=== PATIENT | male | born 1950 | race Caucasian/White ===

== ENCOUNTER 2022-05-22 20:32 | Outpatient (CLI) | payer BC, SELFPAY | END 2022-05-22 20:33 | disposition home or self-care (01) | LOC: SLEEP 20:33 | PROVIDERS: PCP Surgery; Visit Provider Internal Medicine | DX: G47.61 Periodic limb movement disorder (principal) | CPT/HCPCS: 95810 ==

== ENCOUNTER 2023-09-08 08:39 | Emergency (ER) | payer BC, SELFPAY ==
[2023-09-08 09:02] VITALS: BP 158/81; PULSE 51; RESP 18; TEMP 36.1; O2SAT 97; BMI 25.8
[2023-09-08 09:18] LABS: Appearance Urine Clear (Clear); Bilirubin Urine Negative (Negative); Blood Urine 3+ (Negative); Color Urine Yellow (Yellow); Glucose Urine Negative (Negative); Ketones Urine Negative (Negative); Leukocyte Esterase Urine Negative (Negative); Nitrite Urine Negative (Negative); Protein Urine 1+ (Negative); Specific Gravity Urine >= 1.030 (1.000-1.030); Urobilinogen Urine 0.2 (0.2-1.0); pH Urine 5.5 (5.0-8.5)
[2023-09-08 09:28] LABS: Mucus Urine Few; RBC Urine 50-100 (0-2)
--- NOTE | 2023-09-08 09:45 | ED_ITS ---
HPI - General Adult General Date Seen: 09/08/23 Chief complaint: Flank Pain Stated complaint: RT flank pain Time Seen by Provider: 09/08/23 09:43 History of Present Illness HPI narrative: This is a 23-year-old gentleman with a history of osteoarthritis, lumbar deg enerative disc disease, hyperlipidemia, colon polyps, kidney stones. He has been experiencing of right-sided low back and flank pain for the past couple of days. It has been coming and going. No clear trigger. Along with this he did have some pain in his right groin but not in his testicle yesterday. Initially thought maybe his right groin pain was due to arthritis (he has a known history of arthritis in his left knee and is due to have replaced next month and thought that he might have been favoring his left knee and straining his right hip). Pain has been manageable until this morning when he got more severe. He is not having fairly severe pain in his right flank. He did not radiate to the right upper quadrant but a little bit to the right lower quadrant. He is nauseous but not vomiting. Urine has been darker color than normal but no definite blood. No dysuria. No frequency. Bowel movements normal. No fever. No known injury Primary care's to the [facility] clinic. Per records in the [facility] care link baseline creatinine is 0.88-0.92. CT abd pelvis 10/2018 FINDINGS: Imaged lung bases are clear. Subendocardial fat deposition of the left ventricle may reflect sequelae of remote myocardial infarction. Small hypoattenuating hepatic lesions are incompletely characterized but may represent cysts. Gallbladder, spleen, pancreas and adrenal glands are unremarkable. ? Calculus in the right renal pelvis is new from prior examination measuring 1.3 x 0 0.8 cm (series 2 image 62), and average of 1,240 Hounsfield units. No significant hydronephrosis. Left kidney is unremarkable. Bladder is partially nondistended, otherwise unremarkable. Prostate is enlarged. ? Diverticulosis. No evidence of bowel obstruction. Appendix is normal. Abdominal aorta is normal in caliber. No lymphadenopathy. No free fluid or free air. Degenerative changes most pronounced at L4-L5. ? IMPRESSION: Calculus in the right renal pelvis measuring up to 1.3 cm in diameter. No significant hydronephrosis. Related Data Previous Rx's ?Medication ?Instructions ?Recorded hydrocodone 5 mg-acetaminophen 325 1 tab PO Q4-6H PRN pain #20 tabs 09/08/23 mg tablet ondansetron 4 mg disintegrating 4 mg PO Q8H PRN nausea and 09/08/23 tablet vomiting #10 tabs tamsulosin 0.4 mg capsule (Flomax) 0.4 mg PO DAILY #10 caps 09/08/23 Allergies Allergy/AdvReac Type Severity Reaction Status Date / Time No Known Drug Allergies Allergy Verified 09/08/23 09:06 [facility] Medical History (Updated 09/08/23 @ 12:37 by Pelon Beckman MD) Kidney stones ?N20.0 - Calculus of kidney (ICD-10) Elevated cholesterol ?E78.00 - Pure hypercholesterolemia, unspecified (ICD-10) Asthma ?J45.909 - Unspecified asthma, uncomplicated (ICD-10) Surgical History (Updated 09/02/23 @ 09:35 by Judi Laguna ~ [facility]) H/O knee surgery (1973) ?Z98.890 - Other specified postprocedural states (ICD-10) Family History (Updated 09/02/23 @ 09:36 by Judi Laguna ~ [facility], [facility]) Mother Diabetes Colon cancer Brother Testicular cancer Social History (Updated 09/02/23 @ 09:36 by Judi Laguna ~ [facility], [facility]) Smoking Status: Never smoker Do you use any of these nicotine containing products: None Second hand tobacco smoke exposure: No How often do you have a drink containing alcohol: never AUDIT-C Alcohol total score: 0 Non-prescribed substance use: denies use Exam Narrative: Exam Narrative: Constitutional: Appears well-developed and well-nourished. Alert. Uncomfortable appearing and off has a hard time sitting still. Rubbing his right flank. Overall he is Conversant. HENT: Head: Atraumatic. Nose: Nose normal. Mouth/Throat: Oral mucosa is clear and moist. no trismus. Pharynx normal. Eyes: Conjunctivae normal. EOM normal. Pupils equal, round, and reactive to light. No scleral icterus. Neck: Normal range of motion. Neck supple. No tracheal deviation present. Cardiovascular: Normal rate, regular rhythm. No gallop. No friction rub. No murmur heard Pulmonary/Chest: Effort normal. No stridor. No respiratory distress. No wheezes. No rales. No rhonchi . No tenderness. Abdominal: Soft. Bowel sounds normal. No distension. No mass. No right upper quadrant or right lower quadrant tenderness. No rebound. No guarding. He has pain in the right flank but is not tender to percussion. Musculoskeletal: RUE: Normal range of motion. No tenderness. No deformity LUE: Normal range of motion. No tenderness. No deformity RLE: Normal range of motion. No edema. No tenderness. No deformity LLE: Normal range of motion. No edema. No tenderness. No deformity Neurological: Alert and oriented to person, place, and time. Normal strength. CN II-VII intact. No sensory deficit. GCS eye subscore is 4. GCS verbal subscore is 5. GCS motor subscore is 6. Normal coordination Skin: Skin is warm and dry. No rash noted. No pallor. Normal capillary refill. Psychiatric: Normal mood. Normal affect, allowing for discomfort. Const: Vital Signs, click to edit/add: Vital Signs - 24 hr 09/08/23 09:02 09/08/23 11:00 Temperature 96.9 F L Pulse Rate [Pulse Oximeter] 51 L 51 L Respiratory Rate 18 16 Blood Pressure [Ri ght Upper Arm] 158/81 H Pulse Oximetry 97 94 Oxygen Delivery Me thod Room Air Room Air Course Course ED Course: Recheck-reports that his pain is tremendously improved after meds given here in the ER. He is comfortable. No nausea. Vital Signs Vital signs: Initial Vital Signs Temperature 96.9 F L 09/08/23 09:02 Temperature Source Temporal Artery Scan 09/08/23 09:02 Pulse Rate 51 L 09/08/23 09:02 Respiratory Rate 18 09/08/23 09:02 Blood Pressure 158/81 H 09/08/23 09:02 Blood Pressure Mean 106 H 09/08/23 09:02 Blood Pressure Position Sitting 09/08/23 09:02 Pulse Oximetry 97 09/08/23 09:02 Oxygen Delivery Method Room Air 09/08/23 09:02 Vital Signs Temperature 96.9 F L 09/08/23 09:02 Pulse Rate 51 L 09/08/23 09:02 Respiratory Rate 18 09/08/23 09:02 Blood Pressure 158/81 H 09/08/23 09:02 Pulse Oximetry 97 09/08/23 09:02 Oxygen Delivery Method Room Air 09/08/23 09:02 Temperature 96.9 F L 09/08/23 09:02 Pulse Rate 51 L 09/08/23 11:00 Respiratory Rate 16 09/08/23 11:00 Blood Pressure 158/81 H 09/08/23 09:02 Pulse Oximetry 94 09/08/23 11:00 Oxygen Delivery Method Room Air 09/08/23 11:00 Medications Administered Medications: Generic Name Dose Route Start Last Admin Trade Name Freq PRN Reason Stop Dose Admin Hydromorphone HCl 0.5 mg 09/08/23 09:51 09/08/23 10:09 Hydromorphone 0.5 Mg/0.5 Ml Inj IVP 0.5 mg Q1H PRN Administration Pain Discontinued Medications Generic Name Dose Route Start Last Admin Trade Name Freq PRN Reason Stop Dose Admin Ketorolac Tromethamine 15 mg 09/08/23 09:51 09/08/23 10:09 Ketorolac 15 Mg/Ml Inj IVP 09/08/23 09:52 15 mg ONCE ONE Administration Ondansetron HCl 4 mg 09/08/23 09:51 09/08/23 10:09 Ondansetron 2 Mg/Ml Inj IVP 09/08/23 09:52 4 mg ONCE ONE Administration Medical Decision Making MDM Narrative Medical decision making narrative: This patient presents with right flank pain. Differential Diagnosis considered includes: Ureterolithiasis, UTI, pyelonephritis, AAA, colitis, diverticulitis, volvulus, appendicitis, cholecy stitis, among others. At this point, the evaluation indicates that ureterolithiasis is the cause of the patient's symptoms. There are no signs that this is an infected stone. The patient's pain is controlled in ED. The patient is hemodynamically stable in ED. I think the patient is safe for discharge. The plan is discharge to home with recheck by primary care physician or urology.They will return to the ED right away if symptoms worsen (e.g Return immediately for fevers greater than 102, increasing pain, other new symptoms develop). Ureterolithiasis precautions for home. Prescriptions for pain control, nausea control, and flomax were provided. The patient's questions were answered. Patient has tolerated Vicodin well in the past. He has had less success with Percocet. Therefore prescription for hydrocodone provided. Opiate precautions reviewed. Also prescriptions for Zofran and Flomax. He will follow-up with his urologist at [facility] within the next 1-2 weeks. Precautions for return to the ER reviewed. Lab Data Labs: Lab Results 09/08/23 09/08/23 Range/Units 10:00 Unknown Sodium 142 (135-149) mmol/L Potassium 3.7 (3.6-5.1) mmol/L Chloride 107 (96-114) mmol/L Carbon Dioxide 27 (20-32) mmol/L Anion Gap 8 (7-15) mEq/L BUN 26 (7-30) mg/dL Creatinine 1.0 (0.5-1.5) mg/dL Estimated Creat Clear 66.92 Estimated GFR 79 ml/min Glucose 136 H (60-115) mg/dL Calcium 9.4 (8.4-10.6) mg/dL Total Bilirubin 0.8 (0.1-1.5) mg/dL AST 29 (12-35) U/L ALT 20 (4-50) U/L Alkaline Phosphatase 80 (40-150) U/L Total Protein 7.2 (6.0-8.3) g/dL Albumin 4.6 (3.3-5.0) g/dL Urine Color Yellow (Yellow) Urine Appearance Clear (Clear) Urine pH 5.5 (5.0-8.5) Ur Specific Osgood >= 1.030 (1.000-1.030) Urine Protein 1+ A (Negative) Urine Glucose (UA) Negative (Negative) Urine Ketones Negative (Negative) Urine Blood 3+ A (Negative) Urine Nitrite Negative (Negative) Urine Bilirubin Negative (Negative) Urine Urobilinogen 0.2 (0.2-1.0) Ur Leukocyte Esterase Negative (Negative) Urine RBC 50-100 A (0-2) Urine WBC 5-10 A (0-5) Ur Squamous Epith Cells None (None-Few) Urine Bacteria None (None) Urine Mucus Few A (None) Imaging Data CT scan - abdomen: Attestation: I have reviewed the pertinent imaging results. My impression: Stone in the mid right ureter with proximal hydronephrosis and some stranding around the kidney-Dr. Beckman Radiologist's impression: IMPRESSION: There is an obstructing 8 millimeter calculus in the right mid to distal ureter. Discharge Plan Discharge Clinical Impression: Kidney stone on right side Patient Disposition: Home, Self-Care Condition: Stable Instructions: Kidney Stones (ED) Additional Instructions: As we discussed, please come back to the ER right away if you have any problems, especially if you have worsening or uncontrolled pain, any fever or chills, or uncontrolled nausea and vomiting. Drink plenty of fluids and try to stay hydrated. Use Flomax once daily to help relax the ureter where your kidney stone is stuck and this may help it pass out more quickly. Please call [facility] [phone] today to arrange an ER follow-up appointment for your kidney stone within the next 1-2 weeks. Use caution with prescription pain killers because they can cause drowsiness, dizziness, constipation, and can be addictive. Prescriptions: New hydrocodone-acetaminophen 5-325 mg tablet 1 tab PO Q4-6H PRN (Reason: pain) Qty: 20 0RF ondansetron 4 mg tablet,disintegrating 4 mg PO Q8H PRN (Reason: nausea and vomiting) Qty: 10 0RF tamsulosin [Flomax] 0.4 mg capsule 0.4 mg PO DAILY Qty: 10 2RF Follow Up/Referrals: Edison Charles MD [Primary Care Provider] - Stand Alone Forms: [facility] Info Instructions
--- NOTE | 2023-09-08 09:51 | CRLHL7_ITS ---
For Patients: As a result of the Century Cures Act, medical imaging exams and procedure reports are released immediately into your electronic medical record. You may view this report before your referring provider. If you have questions, please contact your health care provider. INDICATION: Right flank pain and hematuria. COMPARISON: None. TECHNIQUE: CT of the abdomen and pelvis without intravenous contrast. Multiplanar axial, coronal, and sagittal reformats were reconstructed. Contrast: None. FINDINGS: Lung bases: Mild right basilar atelectasis. Liver: There are a few small liver cysts. Gallbladder and bile ducts: Normal gallbladder. No bile duct dilation. Pancreas: Normal. Spleen: Normal. Adrenal glands: Normal. Kidneys: There is an 8 x 2 x 3 millimeter calculus in the right mid to distal ureter just below the level of the sacral promontory. There is upstream ureterectasis and pelvocaliectasis. There is asymmetric right perinephric stranding. There are a few other small nonobstructing calculi in the right intrarenal collecting system. Normal noncontrast CT appearance of the left kidney and collecting system. Urinary bladder: Fairly filled at the time of the exam. Pelvis: Mild prostatomegaly. Pelvic phleboliths. Vessels: Atherosclerotic vascular calcifications. No aortic aneurysm. Bowel: Fairly large duodenal diverticulum from the 3rd portion. No inflammation. No dilated or inflamed small bowel or colon. Normal appendix. Few scattered colonic diverticuli. Moderate stool burden. Lymph nodes: No adenopathy. Peritoneum: No ascites. Abdominal wall: No hernia. Bones: No fractures. No focal worrisome bone lesions. IMPRESSION: There is an obstructing 8 millimeter calculus in the right mid to distal ureter. Please note that all CT scans at this facility use dose modulation, iterative reconstruction, and/or weight-based dosing when appropriate to reduce radiation dose to as low as reasonably achievable. Dictated by Angela Smith MD @ 09/08/2023 10:52:31 AM (Electronically Signed)
[2023-09-08] MEDS: ONDANSETRON 2 MG/ML inj 4 MG IVP (10:09)
[2023-09-08] MEDS: KETOROLAC 15 MG/ML inj IVP (10:09)
[2023-09-08] MEDS: HYDROmorphone 0.5 mg/0.5 ml inj IVP (10:09)
[2023-09-08 10:22] LABS: Albumin* 4.6 g/dL (3.3-5.0); Chloride* 107 mmol/L (96-114); Potassium* 3.7 mmol/L (3.6-5.1); Sodium* 142 mmol/L (135-149)
[2023-09-08 10:24] LABS: Est. Creatinine Clearance* 66.92; Estimated Glomerular Filt Rate 79 ml/min
[2023-09-08 10:25] LABS: Alanine Aminotransferase* 20 U/L (4-50); Alkaline Phosphatase* 80 U/L (40-150); Anion Gap 8 mEq/L (7-15); Aspartate Amino Transferase* 29 U/L (12-35); Bilirubin Total* 0.8 mg/dL (0.1-1.5); Blood Urea Nitrogen* 26 mg/dL (7-30); Calcium* 9.4 mg/dL (8.4-10.6); Carbon Dioxide* 27 mmol/L (20-32); Glucose* 136 mg/dL (60-115); Total Protein* 7.2 g/dL (6.0-8.3)
[2023-09-08 11:00] VITALS: PULSE 51; RESP 16; O2SAT 94
== END 2023-09-08 13:01 | disposition home or self-care (01) ==
PROVIDERS: Emergency Provider Emergency Medicine; PCP Surgery
DX: N20.0 Calculus of kidney (principal)
CPT/HCPCS: 36415; 74176; 80053; 81001; 81003; 87086; 96374; 96375; 99283; 99284; J1170; J1885; J2405

== ENCOUNTER 2023-11-24 06:12 | Day surgery (SDC) | payer BC, SELFPAY ==
[2023-11-24] VITALS (22 sets, daily range): BP systolic 100–158; BP diastolic 70–85; PULSE 48–70; RESP 12–21; TEMP 36.1–36.8; O2SAT 92–98; BMI 24.0
[2023-11-24] MEDS: OXYCODONE (CR) 10 MG TAB.ER.12H PO (07:03)
[2023-11-24] MEDS: ACETAMINOPHEN 500 MG TABLET 1000 MG PO (07:03)
[2023-11-24] MEDS: LACTATED RINGERS 1000 ML 1,000 ML 100 ML IV ×2 (07:05→10:23)
[2023-11-24] MEDS: SODIUM CHLORIDE 0.9 % (FLUSH) 10 ML SYRINGE IVF (07:05)
[2023-11-24] MEDS: fentaNYL 100 MCG/2 ML inj IVP (07:10)
[2023-11-24] MEDS: MIDAZOLAM HCL 1 MG/ML inj IVP (07:10)
--- NOTE | 2023-11-24 07:15 | W.PM.H&PU ---
History & Physical Update History & Physical Update H&P Reviewed and patient assessed: No changes noted
--- NOTE | 2023-11-24 07:22 | SUR.PREOP ---
TIME?OUT:?0700, left knee PT/RN/MDA?VERIFICATION?OF?SURGICAL?SITE,?PROCEDURE,?AND?CONSENT OBTAINED?PRIOR?TO?INVASIVE?PROCEDURE.
[2023-11-24] MEDS: TRANEXAMIC ACID 100 MG/ML INJ 1000 MG IV (07:45)
[2023-11-24] MEDS: CEFAZOLIN 2 GM in 0.9 % SODIUM CHLORIDE Mini-bag 100 ML IVPB (07:45)
--- NOTE | 2023-11-24 08:53 | P.ORPRC_ITS ---
Procedure Note Date of procedure: 11/24/23 Procedure: PREOPERATIVE DIAGNOSIS: 1. Left knee osteoarthritis, primary, severe POSTOPERATIVE DIAGNOSIS: 1. Left knee osteoarthritis, primary, severe PROCEDURE: 1. Left total knee arthroplasty - subvastus SURGEON: Jimbo Regan MD. ENTERPRISE RESOURCE PLANNER: BLANCA Burton - Of note, a skilled veterinarian assistant was critical for this case to aid in patient positioning, tissue retraction, limb manipulation/positioning, and closure. ANESTHESIA: Spinal anesthetic EBL: 50ml IMPLANTS: DePuy J&J all cemented TKA - Attune PS femur size 7, size 6 tibia, 5 mm poly spacer, 41mm patella TOURNIQUET: 90 min at 300 torr COMPLICATIONS: None evident INDICATIONS: The patient is a pleasant 73-year-old male who has experienced severe left knee pain and difficulty bearing weight. Workup included x-rays which revealed severe osteoarthrosis in the knee. Given the deformity, the dysfunction, and the pain, as well as the failure of nonoperative management, recommendation was made for surgery. FINDINGS: Full-thickness cartilage loss throughout the medial and patellofemoral compartments. To a lesser degree lateral compartment. Degenerative meniscus pathology both medial and lateral compartments. Moderate effusion upon entering the joint. DESCRIPTION OF PROCEDURE: Following a thorough discussion of risks, benefits, and alternatives consent was obtained and the left knee was marked. The patient was brought to the operating room and placed supine on the operating table. Induction of anesthesia was undertaken. 2 g IV Ancef and 1 g tranexamic acid was administered within 1 hr of incision preoperatively. Proper time-out was performed identifying proper patient, site, procedure. The operative extremity was prepped and draped in the appropriate sterile fashion using ChloraPrep after the patient was positioned supine with all bony prominences well padded. A longitudinal, anterior, midline skin incision was made starting approximately 3cm proximal to the superior pole of the patella and advanced distal to the tibial tubercle. A subvastus approach was utilized. A medial subperiosteal sleeve was created with knife, kramer elevator and curved osteotome. The retropatellar fatpad was resected and the synovium in the suprapatellar pouch excised to visualize the anterior femoral cortex. Femoral preparation was performed via an intramedullary guide. Step drill allowed access into the femoral canal. The distal cutting guide was placed with 5? of valgus and 10 mm cut on the distal femur. Femur was sized using a posterior referencing guide in 3? of external rotation. This found have a best fit with the sizing noted above. The 4 in 1 cutting block was then placed, and the distal femur shaped accordingly. The box cut was then created and the trial implant inserted to confirm appropriate fit. We turned our attention to the proximal tibia. Extramedullary guide was utilized for cutting with the goal of being 90 degree cut from the mechanical axis of the tibia in the varus/valgus plane utilizing tibial crest as the primary alignment. Initially a 2 mm resection was performed from the medial tibial plateau. Ultimately, balancing was achieved in both flexion and extension in both varus and valgus. The knee was able to achieve full extension as well comfortably. The patella was initially measured and found have a thickness of 24 mm. It was resected back to approximately 14 mm. It was sized to be a best fit with as noted above. This was drilled, trial placed. All trials were placed and found to have an excellent stability and balance. At this stage, trial implants were removed, the knee was thoroughly irrigated with normal saline, and the cement was mixed. After irrigation, the knee was thoroughly dried, and cement placed, with the real tibial and femoral implants placed along with the patella. Trial poly spacer was placed and confirmed to have excellent range of motion and full extension, and the real poly spacer opened and inserted. All extra cement was removed, and a 3 min Betadine soak performed. Finally, a final irrigation round with normal saline was performed. Closure performed with 0 PDS and #0 Stratafix for the quad tendon/retinaculum. 2-0 Vicryl/Stratafix for the subcutaneous and 4-0 Monocryl for subcuticular closure. Dressings were applied and the patient was awoken from anesthesia after the tourniquet deflated and transferred the PACU in stable condition. A skilled veterinarian assistant was critical for this case to aid in patient positioning, tissue retraction, bone exposure, limb manipulation/positioning, patient safety, and closure. PLAN: 1. Weight bear as tolerated operative extremity. 2. 23 hr perioperative antibiotics. 3. Ice. 4. PT/OT consults for ambulation assistance/mobility education. 5. Social work consult for discharge planning. 6. DVT prophylaxis with at SCDs and aspirin twice daily.
[2023-11-24] MEDS: fentaNYL 100 MCG/2 ML inj 50 MCG IVP ×3 (09:30→09:56)
--- NOTE | 2023-11-24 09:30 | W.ANESCHARGE ---
Anesthesia Charges Start Date/Time Anesthesia Start Date: 11/24/23 Anesthesia Start Time: 07:28 Stop Date/Time Anesthesia Stop Date: 11/24/23 Anesthesia Stop Time: 09:20
--- NOTE | 2023-11-24 09:35 | CRLHL7_ITS ---
For Patients: As a result of the Cures Act, medical imaging exams and procedure reports are released immediately into your electronic medical record. You may view this report before your referring provider. If you have questions, please contact your health care provider. Indication: Postop left TKA Technique: Two views left knee Findings/Impression: Hardware from a left total knee arthroplasty is in satisfactory position. Bone alignment is normal. No sign of acute fracture. Postop changes are within normal limits. Dictated by Chung Saha MD @ 11/24/2023 12:49:41 PM (Electronically Signed)
--- NOTE | 2023-11-24 09:58 | W.ANESCHARGE ---
Anesthesia Charges Start Date/Time Anesthesia Start Date: 11/24/23 Anesthesia Start Time: 07:28 Stop Date/Time Anesthesia Stop Date: 11/24/23 Anesthesia Stop Time: 09:20 Summary Extremes of Age - Over 70 or under 1: MDA
--- NOTE | 2023-11-24 10:00 | P.NB_ITS ---
Nerve Block Nerve Block Time Seen by Provider: 07:05 Date Seen: 11/24/23 Type of block requested by surgeon for post-operative analgesia: adductor canal Side: left Time out performed: Yes Verification of patient name: Yes Verification of date of : Yes Site marking: site marked Name of person performing procedure: Nicholas Continuous monitoring Was continuous monitoring of O2 sat, B/P, environmental monitoring specialist, recorded every 15 minutes?: Yes Procedure Checklist: sterile prep, needles and gloves Ultrasound guided. Images saved: Yes Medications given in 5ml increments after negative aspiration: Ropivicaine %: 0.5 mL: 20 Needle gauge: 20 Precedex (mcg): 25 Patient tolerated procedure well: Yes Additional comments: Needle noted adjacent to nerve Block Charges Block Charge (with Pro Fee): Femoral Nerve Use of Ultrasound Machine for Block: Yes- US Guidance/pain block
--- NOTE | 2023-11-24 10:01 | P.NB_ITS ---
Nerve Block Nerve Block Time Seen by Provider: 07:05 Date Seen: 11/24/23 Type of block requested by surgeon for post-operative analgesia: geniculars Side: left Time out performed: Yes Verification of patient name: Yes Verification of date of : Yes Site marking: site marked Name of person performing procedure: Nicholas Continuous monitoring Was continuous monitoring of O2 sat, B/P, leaflet or newspaper deliverer, recorded every 15 minutes?: Yes Procedure Checklist: sterile prep, needles and gloves Medications given in 5ml increments after negative aspiration: Ropivicaine %: 0.5 mL: 9 Needle gauge: 25 Patient tolerated procedure well: Yes Block Charges Block Charge (with Pro Fee): Genicular Nerve Block Use of Ultrasound Machine for Block: No
[2023-11-24] MEDS: OXYCODONE 5 MG TABLET PO (10:43)
[2023-11-24] MEDS: IBUPROFEN 200 MG TABLET 400 MG PO (11:21)
[2023-11-24] MEDS: LACTATED RINGERS 1000 ML 1,000 ML 50 ML IV (11:40)
--- NOTE | 2023-11-24 12:25 | SUR.PHASEII ---
pt to PT for evaluation
== END 2023-11-24 14:32 | disposition home or self-care (01) ==
LOC: OR 06:13
PROVIDERS: PCP Surgery; Visit Provider Orthopaedic Surgery Sports Medicine
PROC: (CPT 27447; principal; 2023-11-24 07:30)
DX: M17.12 Unilateral primary osteoarthritis, left knee (principal); G89.18 Other acute postprocedural pain
CPT/HCPCS: 27447; 01402; 64447; 64454; 73560; 76942; 97110; 97116; 97161; 99100; A9270; C1776; J0690; J1100; J2250; J2371; J2405; J2704; J2795; J3010; J7120; P9047

== ENCOUNTER 2024-01-22 14:45 | Outpatient (RCR) | payer BC, SELFPAY ==
--- NOTE | 2023-11-20 13:20 | PT.OPEX ---
PT [place] Outpatient Eval PT [facility] Outpatient Eval Start: 11/05/23 10:02 Freq: Status: Active Protocol: Document 11/20/23 09:16 MLS (Rec: 11/20/23 13:19 MLS [id number]) E-signed By Yoana Dong DPT Physical Therapy Outpatient Evaluation Insurance Information Recert Due Date 02/17/24 Insurance Name Medicare B,Blue Cross/Blue Shield Medical Diagnosis M17.12 Unilateral primary OA, left knee Z96.652 presence of left artificial knee joint s/p left TKA 11/24/23 Treating Diagnosis TKA protocol Referring MD Dr. Odonnell Subjective Preferred Name Don Subjective Patient is a 73 year old male who presents to physical therapy for his pre-op appointment prior to left TKA on 11/24/23. He does not have a current exercise program but does a lot of walking at work and sometimes in the evenings . Significant past medical history includes kidney stones , asthma, and arthritis. Pain Comments Today: 0/10 on a 0-10 pain scale with 10 = extreme pain At its worst: 7/10 At its best: 0/10 Current Work Status Sterile Processing Technologist,Retired Occupation [employer] Precautions Weight Bearing Status Full Weight Bearing Therapy Limitations/Systems Review Not Limited Objective Other/Pertinent Objective GAIT/FUNCTIONAL MOBILITY Independent, no antalgic gait KNEE ROM Left: Extension/Flexion: 0-120 Right: WNL HIP ROM Grossly tested WNL LLE MMT: Hip flexion: R 4/5 L 4/5 Hip abduction: R 4/5 L 4/5 Hip extension: R 4/5 L 4/5 Knee flexion: R 5/5 L 5/5 Knee extension: R 5/5 L 5/5 Reviewed/demonstrated on frequency to perform HEP post operatively including: long sitting quad ankle pumps supine heel slide with strap supine quad sets supine SAQ SLR with quad set seated long arc quad seated knee flexion AAROM supine knee extension stretch on towel roll Extensive discussion and education on what to expect post operatively. Time was spent discussing home modifications, Assistive devices, pain control, fall prevention, hospital stay time line, and assist needed for activities post surgically. Pt questions were answered and demonstrated understanding. Assessment Assessment/Impression Pt is a 73 year old male who presents to PT prior to left TKA surgery on 11/24/23. Patient also has notable objective findings including decreased strength which are also likely contributing to the problem. Patient is a good candidate for skilled therapy to target deficits described above. Skilled PT intervention is necessary for use of therapeutic exercise manual therapy, neuromuscular re- education, gait training, and therapeutic activity. Functional impairments include difficulty with: standing, walking, exercising, and ADLS. See appropriate sections of PT eval for complete list of goals and POC. D/C plan and criteria is for pt to achieve the goals as listed below or until max rehab potential is met. Pt was agreeable with plan of care and goals established. Primary Functional Limitations standing walking exercising ADLs Plan of Care Rehabilitation Potential Good Physical Therapy Goals Within 10-12 weeks: 1) Pt will improve knee AROM at least 0 to 120 for improved sit to stand transfers 2) Pt will demonstrate negative extensor lag during straight leg raise exercise with ability to complete at least 15 reps with 5 sec hold to improve strength for ambulation 3) Patient will demonstrate/ report ability to walk for 15 minutes w/SPC with pain level <1/10, to allow for community and household ambulation. 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 Coordination/Communication With Referral Source Treatment Plan/Direct Interventions Gait Training,Manual Therapy, Neuromuscular Re-ed, Therapeutic Activities, Therapeutic Exercises Patient Will Be Discharged From Therapy Independently Progressing Evaluation Billing Untimed Code Treatment Minutes 25 Complexity Low Certification Information Provider Signature Required Yes Provider Signature Shows Agreement With POC & Medical Necessity Physician NPI Number Write NPI# Here Physician Comment/Change : Physician Signature & Date Requested Please Sign/Date Here
== END 2024-04-05 08:28 | disposition home or self-care (01) ==
PROVIDERS: PCP Surgery; Visit Provider Orthopaedic Surgery Sports Medicine
DX: M17.12 Unilateral primary osteoarthritis, left knee (principal); Z96.652 Presence of left artificial knee joint; Z51.89 Encounter for other specified aftercare
CPT/HCPCS: 97110; 97116; 97140; 97161; 97164